=== PATIENT | male | born 1995 | race Caucasian/White ===

== ENCOUNTER 2018-09-23 08:08 | Emergency (ER) | payer OTHER ==
[~2018-09-23] VITALS: Ht 172.7 cm; Wt 70.3 kg
[2018-09-23] MEDS ORDERED: BUPR1FIL3 SL (08:23)
--- NOTE | 2018-09-23 08:44 | NUR ---
DR ZARAGOZA WAS AT BEDSIDE FOR EVAL. CALLED [facility] TEACHER FOR EVAL (MEGAN). PATIENT IS AWAKE AND ALERT.
--- NOTE | 2018-09-23 09:05 | NUR ---
PATIENT IS WEARING LONG SLEEVE SHIRT, LONG PANTS, SHOES, SOCKS AND HAS A HAT. STATES HE IS NOT COLD. CLOTHES ARE CLEAN. STATES [place] AND THAT HE WAS LIVING AT A DET[facility] CALLED "[facility]" BUT THEN WENT TO "[facility]" WHO TOLD HIM THEY WILL NOT ACCEPT HIM. I ASKED WHY THEY WONT ACCEPT HIM AND HE STATED BECAUSE "I HUNG UP ON THEM". HE STATES THEY DO NOT PAY FOR MEDICATIONS EVEN THOUGH HE HAS "COMMERCIAL INSURANCE". HE IS SITTING UP EATING BREAKFAST. AWAITING ARRIVAL OF ALEXANDRE AT 10AM...
--- NOTE | 2018-09-23 10:45 | NUR ---
MEGAN, SUPERVISOR [employer] HERE SPEAKING TO PATIENT.
--- NOTE | 2018-09-23 11:49 | NUR ---
WAITING TO HEAR FROM [facility]... PATIENT IS SLEEPING BUT AROUSES EASY
--- NOTE | 2018-09-23 13:20 | NUR ---
10:30am: ALEXANDRE consultation requested. ALEXANDRE arrived to the ED and met with Dr. Zaragoza to discuss patient's case. ALEXANDRE then met with patient, who was asleep in his assigned ED bed but easily arousable. Patient was receptive to meeting with this SW. Patient reported that he has a history of opiods use, and has been in detox and 2 rehabs since mid-June 2018 ([facility] in [place], followed by [facility] and [facility]). Patient stated that due to the [facility] not being able to administer the necessary medications, he transferred to [facility]. Patient stated that that [facility] was also not able to administer the necessary medications, and he decided to leave last night. However when he returned this morning, they informed him that they did not have availability. Patient came to the ED because he is asking for help with getting into another detox and rehab program. 10:50am: ALEXANDRE contacted Juancarlos at [facility] [phone], and faxed referral to him at [phone]. 11:30am: Juancarlos then informed this SW to contact Annette in the referral department, x [phone]. 12:00pm: ALEXANDRE called Annette and left her a voicemail. Waiting to hear back. 1:10pm: ALEXANDRE received a voicemail message from Annette. ALEXANDRE called Annette back and was not able to connect with her; ALEXANDRE left her another voicemail. ALEXANDRE is waiting to hear back.
--- NOTE | 2018-09-23 14:11 | NUR ---
PATIENT IS SITTING UP DRINKING WATER, EATING A SANDWICH AND CRACKERS.
--- NOTE | 2018-09-23 14:35 | NUR ---
MEGAN, SHOW WORKER SPEAKING TO PATIENT AT THIS TIME..
--- NOTE | 2018-09-23 14:40 | NUR ---
2:15pm: ALEXANDRE received a call back from Annette at [facility] [phone], who stated that they are not contracted with patient's insurance, and that the only option for patient admission would be if patient could pay privately. ALEXANDRE stated that patient does not have resources for private pay. SW to consult with the patient about alternate discharge options. Dr. Zaragoza and STACIA Sanford informed of above.
--- NOTE | 2018-09-23 14:44 | NUR ---
SW met with patient to inform to discuss alternate discharge options since patient was not eligible for [facility]. Patient expressed needing to go to a psychiatric hospital because he feels he may be a danger to himself, expressing thoughts of wanting to overdose or run into traffic. SW discussed the option of voluntary admission to a psychiatric inpatient hospital. Patient expresssed agreement.
[2018-09-23 14:54] LABS: BASOPHILS % (AUTO) 0.3 % (0.0-2.0); EOSINOPHILS # (AUTO) 0.1 K/uL (0.0-0.7); EOSINOPHILS % (AUTO) 1.4 % (0.0-7.0); HEMATOCRIT 39.5 % (36.7-47.1); HEMOGLOBIN 13.6 g/dL (12.5-16.3); LYMPHOCYTES # (AUTO) 1.3 K/uL (20.0-40.0); LYMPHOCYTES % (AUTO) 23.4 % (20.5-51.5); MEAN CORPUSCULAR HEMOGLOBIN 30.8 uug (23.8-33.4); MEAN CORPUSCULAR HGB CONC 35 g/dL (32.5-36.3); MEAN CORPUSCULAR VOLUME 89.3 fL (73.0-96.2); MONOCYTES # (AUTO) 0.5 K/uL (2.0-10.0); MONOCYTES % (AUTO) 8.9 % (0.0-11.0); NEUTROPHILS # (AUTO) 3.8 K/uL (1.8-8.9); PLATELET COUNT (AUTO) 178 K/uL (152-348); RED BLOOD CELL COUNT(AUTO) 4.42 MIL/uL (4.06-5.63); WHITE BLOOD COUNT (AUTO) 5.7 K/uL (3.6-10.2)
[2018-09-23 15:01] LABS: CARBON DIOXIDE 29 mmol/L (21-32); CHLORIDE 100 mmol/L (98-107); CREATININE 0.8 mg/dL (0.6-1.3); GLUCOSE 108 mg/dL (74-106); POTASSIUM 4.1 mmol/L (3.5-5.1); UREA NITROGEN, BLOOD 11 mg/dL (7-18)
[2018-09-23 15:07] LABS: ALANINE AMINOTRANSFERASE 288 U/L (16-63); ALKALINE PHOSPHATASE 141 U/L (50-136); ASPARTATE AMINOTRANSFERASE 103 U/L (15-37); BILIRUBIN,DIRECT 0.2 mg/dL (0.0-0.2); BILIRUBIN,TOTAL 0.5 mg/dL (0.2-1.0); TOTAL PROTEIN, SERUM 7.9 g/dL (6.4-8.2)
[2018-09-23 15:08] LABS: ACETAMINOPHEN < 2.0 ug/mL (10-30)
[2018-09-23 15:09] LABS: ETHANOL < 3 MG/DL (0-0)
[2018-09-23] MEDS ORDERED: OLANZAPINE 5 MG TABLET PO ONE (15:15)
[2018-09-23] MEDS ORDERED: OLANZAPINE 5 MG TABLET ONE (15:22)
--- NOTE | 2018-09-23 15:22 | NUR ---
ALEXANDRE consulted with Director Brie Otero. See notes entered by Brie Otero. Patient is now stating that he would prefer to go to a detox program. ALEXANDRE made referral to [facility], [facility] physician's notes to Lisa at [phone] ( ). Addendum: 09/23/18 at 1550 by MEGAN SCHROEDER Referral made for inpatient psychiatric hospital and detox program, voluntary admission.
--- NOTE | 2018-09-23 15:50 | NUR ---
ALEXANDRE made referral to [facility] at [facility], tel # [phone], fax # [phone]. Physician's notes, list of meds, labs, face sheet, and xray results faxed. Waiting to hear back from [facility].
--- NOTE | 2018-09-23 15:50 | NUR ---
URINE SENT TO LAB. PATIENT DRANK 12 OUNCES OF JUICE AND ATE SOME CRACKERS. AWAITING PLACEMENT FOR THIS PATIENT. HE IS AWAKE AND ALERT IN NO DISTRESS. HAS NO COMPLAINTS AT THIS TIME.
--- NOTE | 2018-09-23 16:19 | NUR ---
SW met with patient and informed him that referrals to other hospitals/programs are still pending (see previous SS notes). SW asked patient about his previous comments about wanting to harm himself if he didn't get into a program tonight, and patient stated "as long as i'm in a program or psych hospital, I know they'll help me and I'll be fine". Patient stated that he would not think of harming himself as long as he was able to get into a program tonight. SW stated that she will be making an additional referral to [facility] and patient stated being fine with this. SW stated that she would provide the patient with an update as soon as she hears back from the programs that the referrals were made. Patient expressed agreement.
--- NOTE | 2018-09-23 16:26 | NUR ---
[facility] [phone], after which SW was transferred to the Detox program intake. ALEXANDRE spoke with [facility] who stated that they currently they have no beds available. Referral not done at this time.
--- NOTE | 2018-09-23 16:34 | NUR ---
ALEXANDRE informed by STACIA Sanford that [facility] called and stated that patient has been accepted. Dr. Zaragoza and Director Brie Otero informed. Patient will be transported via taxi to [facility]. ALEXANDRE informed patient of above, and he expressed agreement with the plan.
[2018-09-23 16:47] LABS: *BILIRUBIN,URIN 1+ (NEGATIVE); *BLOOD, URINE Trace-intact (NEGATIVE); *CLARITY,URINE CLEAR (CLEAR); *COLOR,URINE DARK YELLOW (YELLOW); *KETONES,URINE TRACE (NEGATIVE); *UROBILINOGEN,URINE 0.2 E.U./dl (NORMAL); LEUKOCYTE ESTERASE ,URINE NEGATIVE (NEGATIVE); NITRITE, URINE NEGATIVE (NEGATIVE); UGLUCOSE NEGATIVE (NEGATIVE)
--- NOTE | 2018-09-23 16:47 | NUR ---
PATIENT AWARE OF PENDING TRANSFER TO [facility] AND IS HAPPY ABOUT THIS. HE WILL BE TAKEN THERE BY TAXI PROVIDED BY HOSPITAL.
[2018-09-23 17:01] LABS: *AMPHETAMINE, URINE NEGATIVE (NEGATIVE); *BARBITURATE, URINE NEGATIVE (NEGATIVE); *CANNABINOID, URINE NEGATIVE (NEGATIVE); *COCCAINE, URINE NEGATIVE (NEGATIVE); *OPIATE, URINE NEGATIVE (NEGATIVE); *PHENCYCLIDINE SCREEN,URINE NEGATIVE (NEGATIVE); WBC,URINE 0-3 /HPF (0-3)
[2018-09-23 17:02] LABS: MUCUS,URINE MANY /LPF (0-FEW)
--- NOTE | 2018-09-23 17:02 | NUR ---
JANIYA FROM [facility] INTAKE STATED THEY ARE READY FOR THE PATIENT AND TO GO AHEAD AND CALL TRANSPORTATION FOR HIM TO GO THERE. JANIYA STATED THAT THEY WILL ASSESS PATIENT AND ASSIGN DOCTOR UPON ARRIVAL. I CALLED [facility] AND THEY WILL ARRIVE HERE IN 15 MINUTES TO TAKE PATIENT THERE. PATIENT IS AWARE AND IS IN AGREEMENT WITH THIS PLAN OF CARE.
--- NOTE | 2018-09-23 17:12 | NUR ---
[facility] HERE TO TAKE PATIENT TO [facility]. PATIENT GATHERED ALL HIS BELONGINGS IN A BIG WHIE BAG AND HIS WALKER AND AMBULATED TO [facility] IN [place].
[2018-09-23 17:13] VITALS: BP 119/74
== END 2018-09-23 17:14 | disposition home or self-care (01) ==
LOC: ER 08:08
DX: F11.23 Opioid dependence with withdrawal (principal); F32.9 Major depressive disorder, single episode, unspecified; Z59.0 Homelessness; J44.9 Chronic obstructive pulmonary disease, unspecified; F17.200 Nicotine dependence, unspecified, uncomplicated; Z79.899 Other long term (current) drug therapy
CPT/HCPCS: 36415; 71045; 80048; 80076; 80307; 81001; 85025; 93005; 99284; G0480 ×2; G0481; A4663